=== PATIENT | female | born 2000 | race Caucasian/White ===

== ENCOUNTER 2020-11-27 22:08 | Inpatient (IN) | payer OTHER ==
[~2020-11-27] VITALS: Ht 160 cm; Wt 90.0 kg
[2020-11-27] MEDS ORDERED: ALBU6.7H9 IH (22:24)
[2020-11-27] MEDS ORDERED: HYDR-501 PO (22:24)
[2020-11-27] MEDS ORDERED: LEVO50TA8 PO (22:24)
[2020-11-27] MEDS ORDERED: CLON0.5T PO (22:24)
[2020-11-27] MEDS ORDERED: TRAZ-182 PO (22:24)
--- NOTE | 2020-11-27 22:35 | NUR ---
Dr. Rios at bedside for MSE.
[2020-11-27] MEDS ORDERED: ONDANSETRON 4 MG/2 ML VIAL IV ONE ×2 (22:45→23:15)
[2020-11-27] MEDS ORDERED: IV NORMAL SALINE 1000 ML BAG IV ONE (22:45)
[2020-11-27] MEDS ORDERED: MORPHINE SULFATE 2 MG/1 ML DISP.SYRIN IV ONE (22:45)
[2020-11-27] MEDS ORDERED: MORPHINE SULFATE 4 MG/1 ML DISP.SYRIN ONE (22:48)
[2020-11-27 22:51] LABS: BASOPHILS # (AUTO) 0.1 K/uL (0.0-8.0); BASOPHILS % (AUTO) 0.6 % (0.0-2.0); EOSINOPHILS # (AUTO) 0.2 K/uL (0.0-0.7); EOSINOPHILS % (AUTO) 2.4 % (0.0-7.0); HEMATOCRIT 42.9 % (31.2-41.9); HEMOGLOBIN 14.9 g/dL (10.9-14.3); LYMPHOCYTES # (AUTO) 2.3 K/uL (20.0-40.0); LYMPHOCYTES % (AUTO) 22.8 % (20.5-51.5); MEAN CORPUSCULAR HEMOGLOBIN 31.2 uug (24.7-32.8); MEAN CORPUSCULAR HGB CONC 35 g/dL (32.3-35.6); MONOCYTES # (AUTO) 0.7 K/uL (2.0-10.0); NEUTROPHILS # (AUTO) 6.8 K/uL (1.8-8.9); NEUTROPHILS % (AUTO) 67.2 % (38.5-71.5); PLATELET COUNT (AUTO) 316 K/uL (179-408); RED BLOOD CELL COUNT(AUTO) 4.77 MIL/uL (3.63-4.92); WHITE BLOOD COUNT (AUTO) 10.2 K/uL (3.8-11.8)
[2020-11-27 23:00] LABS: *BILIRUBIN,URIN NEGATIVE (NEGATIVE); *CLARITY,URINE CLEAR (CLEAR); *COLOR,URINE YELLOW (YELLOW); *KETONES,URINE NEGATIVE (NEGATIVE); *UROBILINOGEN,URINE 0.2 E.U./dl (NORMAL); LEUKOCYTE ESTERASE ,URINE TRACE (NEGATIVE); NITRITE, URINE NEGATIVE (NEGATIVE); PH,URINE 6.5 (5.0-8.0); UGLUCOSE NEGATIVE (NEGATIVE)
[2020-11-27 23:01] LABS: *URINE HCG, QUAL NEGATIVE (NEGATIVE)
[2020-11-27 23:02] LABS: *BLOOD, URINE NEGATIVE (NEGATIVE)
[2020-11-27 23:07] LABS: CARBON DIOXIDE 28 mmol/L (21-32); CHLORIDE 101 mmol/L (98-107); GLUCOSE 96 mg/dL (74-106); POTASSIUM 4.1 mmol/L (3.5-5.1); UREA NITROGEN, BLOOD 10 mg/dL (7-18)
--- NOTE | 2020-11-27 23:08 | NUR ---
Ultrasound at bedside.
[2020-11-27 23:10] LABS: RBC,URINE 0-3 /HPF (0-3)
[2020-11-27 23:11] LABS: BACTERIA,URINE FEW /HPF (NONE SEEN); MUCUS,URINE FEW /LPF (0-FEW); SQUAMOUS EPITHELIAL CELL,UR MODERATE /HPF (NONE SEEN); URINE AMORPHOUS URATE FEW /HPF
[2020-11-27 23:13] LABS: ALANINE AMINOTRANSFERASE 113 U/L (14-59); ALKALINE PHOSPHATASE 55 U/L (50-136); ASPARTATE AMINOTRANSFERASE 86 U/L (15-37); BILIRUBIN,DIRECT 0.1 mg/dL (0.0-0.2); BILIRUBIN,TOTAL 0.3 mg/dL (0.2-1.0); LIPASE 153 U/L (73-393); TOTAL PROTEIN, SERUM 8.1 g/dL (6.4-8.2)
[2020-11-27] MEDS ORDERED: HYDROMORPHONE 1 MG/1 ML DISP.SYRIN IV ONE (23:15)
[2020-11-27] MEDS ORDERED: ONDANSETRON 4 MG/2 ML VIAL ONE (23:19)
[2020-11-27] MEDS ORDERED: HYDROMORPHONE 1 MG/1 ML DISP.SYRIN ONE (23:20)
[2020-11-28] MEDS ORDERED: METOCLOPRAMIDE HCL 10 MG/2 ML VIAL IV ONE
[2020-11-28] MEDS ORDERED: diphenhydrAMINE 50 MG/1 ML VIAL IV ONE
[2020-11-28] MEDS ORDERED: CIPROFLOXACIN IV 400 MG in PREMIXED 1 EACH IV ONE
[2020-11-28] MEDS ORDERED: METRONIDAZOLE 500 MG/NS 100 ML PIGGYBACK IV ONE
--- NOTE | 2020-11-28 00:25 | NUR ---
Called [facility] to page Yosvany Valle NP.
--- NOTE | 2020-11-28 00:45 | NUR ---
Dr. Rios on panel call with Yosvany Valle NP. Patient accepted for admission to OR, diagnosis: cholelithiasis.
--- NOTE | 2020-11-28 00:47 | NUR ---
Dr. Rios speaking with Dr. Franki Brewer for surgery.
[2020-11-28] MEDS ORDERED: Z GUARD REMEDY PASTE 57 GM TUBE TOP PRN (01:00)
[2020-11-28] MEDS ORDERED: MORPHINE SULFATE 2 MG/1 ML DISP.SYRIN IV PRN (01:00)
--- NOTE | 2020-11-28 01:12 | NUR ---
Report given to Dayna AVELAR Medsurg.
--- NOTE | 2020-11-28 01:30 | NUR ---
Admitted a 20 y/o female to [facility] via gurney with admitting diagnosis of Acute cholecystitis. Pt on room air, no s/s of respiratory distress. Denies pain, nausea and vomiting. IV access on R AC intact and patent. Currently on NPO status. Pt is aware. Safety measures initiated, admission care rendered. Call light within reach. will continue to monitor.
[2020-11-28 01:53] VITALS: BP 134/76
[2020-11-28] MEDS: IV NS 1000 ML 1,000 ML IV PRN ×2 (02:16→16:46)
[2020-11-28 04:30] VITALS: BP 95/49
[2020-11-28] MEDS ORDERED: METRONIDAZOLE 500 MG/NS 100ML 100 ML IV ONE (05:22)
[2020-11-28] MEDS: METRONIDAZOLE 500 MG/NS 100ML 500 MG in PREMIXED 1 EACH IV SCH ×3 (05:30→21:34)
--- NOTE | 2020-11-28 06:03 | NUR ---
Pt in bed, awake and verbally responsive. Pt on room air, no s/s of respiratory distress. Denies pain, nausea and vomiting. IV access on R AC intact and patent. Safety measures initiated, call light within reach. Reminded pt regarding NPO status. Pt verbalized understanding. All needs attended.
[2020-11-28] MEDS: PANTOPRAZOLE SODIUM 40 MG VIAL IV SCH (08:17)
[2020-11-28] MEDS: ONDANSETRON 4 MG/2 ML VIAL IV PRN ×3 (08:48→21:31)
[2020-11-28] MEDS ORDERED: CIPROFLOXACIN IV 400 MG in PREMIXED 1 EACH IV SCH (09:00)
[2020-11-28 11:30] VITALS: BP 107/54
[2020-11-28] MEDS ORDERED: CLONAZEPAM 0.5 MG TABLET PO PRN (11:45)
[2020-11-28] MEDS: ALBUTEROL SULFATE 1.25 MG/3 ML NEBU NEB SCH ×3 (12:00→23:45)
[2020-11-28] MEDS: CIPROFLOXACIN IV 400 MG in PREMIXED 1 EACH IV SCH (12:14)
[2020-11-28 15:58] VITALS: BP 104/71
[2020-11-28] MEDS: MORPHINE SULFATE 4 MG/1 ML DISP.SYRIN IV PRN (17:08)
[2020-11-28 20:12] VITALS: BP 106/60
[2020-11-28] MEDS: TRAZODONE 50 MG TABLET PO SCH ×2 (21:31→21:40)
[2020-11-29] MEDS: CIPROFLOXACIN IV 400 MG in PREMIXED 1 EACH IV SCH ×2 (00:50→12:14)
[2020-11-29 04:38] VITALS: BP 106/67
[2020-11-29] MEDS: IV NS 1000 ML 1,000 ML IV PRN ×2 (04:46→18:26)
[2020-11-29] MEDS ORDERED: CEphaleXIN 250 MG CAPSULE ONE (05:09)
[2020-11-29] MEDS: ALBUTEROL SULFATE 1.25 MG/3 ML NEBU NEB SCH ×4 (05:25→23:52)
[2020-11-29] MEDS: METRONIDAZOLE 500 MG/NS 100ML 500 MG in PREMIXED 1 EACH IV SCH ×3 (06:02→21:44)
[2020-11-29] MEDS: MORPHINE SULFATE 4 MG/1 ML DISP.SYRIN IV PRN ×3 (06:14→19:42)
[2020-11-29] MEDS: ONDANSETRON 4 MG/2 ML VIAL IV PRN ×3 (06:14→18:24)
[2020-11-29 06:57] LABS: BASOPHILS % (AUTO) 0.2 % (0.0-2.0); EOSINOPHILS # (AUTO) 0.1 K/uL (0.0-0.7); HEMATOCRIT 38.2 % (31.2-41.9); HEMOGLOBIN 13.3 g/dL (10.9-14.3); LYMPHOCYTES # (AUTO) 1.7 K/uL (20.0-40.0); LYMPHOCYTES % (AUTO) 26.8 % (20.5-51.5); MEAN CORPUSCULAR HEMOGLOBIN 31.3 uug (24.7-32.8); MEAN CORPUSCULAR HGB CONC 35 g/dL (32.3-35.6); MEAN CORPUSCULAR VOLUME 89.7 fL (75.5-95.3); MONOCYTES # (AUTO) 0.5 K/uL (2.0-10.0); MONOCYTES % (AUTO) 7.5 % (0.0-11.0); NEUTROPHILS # (AUTO) 4.1 K/uL (1.8-8.9); NEUTROPHILS % (AUTO) 63.5 % (38.5-71.5); PLATELET COUNT (AUTO) 285 K/uL (179-408); RED BLOOD CELL COUNT(AUTO) 4.26 MIL/uL (3.63-4.92); WHITE BLOOD COUNT (AUTO) 6.5 K/uL (3.8-11.8)
--- NOTE | 2020-11-29 07:04 | NUR ---
End of Shift Report: Patient slept most of the night. AOx4, patient is on room air, no s/s of respiratory distress. IV access on R AC intact and patent running NS 100mL/hr. Safety measures initiated, call light within reach. Reminded patient regarding NPO status. Patient verbalized understanding. All needs attended to promptly. Will endorse to the oncoming shift.
[2020-11-29 07:06] LABS: BILIRUBIN,DIRECT 0.2 mg/dL (0.0-0.2); BILIRUBIN,TOTAL 0.8 mg/dL (0.2-1.0); CREATININE 0.9 mg/dL (0.6-1.3); PHOSPHOROUS 4.2 mg/dL (2.5-4.9); POTASSIUM 3.9 mmol/L (3.5-5.1); TOTAL PROTEIN, SERUM 6.9 g/dL (6.4-8.2)
[2020-11-29 07:21] LABS: BILIRUBIN,DIRECT 0.2 mg/dL (0.0-0.2); BILIRUBIN,TOTAL 0.8 mg/dL (0.2-1.0)
[2020-11-29] MEDS: LEVOTHYROXINE SODIUM 50 MCG TABLET PO SCH (07:39)
[2020-11-29] MEDS: PANTOPRAZOLE SODIUM 40 MG VIAL IV SCH (08:12)
[2020-11-29] MEDS ORDERED: LEVOTHYROXINE SODIUM 50 MCG TABLET PO SCH (09:00)
[2020-11-29 11:25] VITALS: BP 107/58
--- NOTE | 2020-11-29 12:23 | NUR ---
pt went to [facility] for [facility] via ambulances in stable condition
--- NOTE | 2020-11-29 14:06 | NUR ---
pt received back from the [facility] via ambulances in stable condition
[2020-11-29 15:58] VITALS: BP 108/55
--- NOTE | 2020-11-29 19:45 | NUR ---
RECEIVED PATIENT AWAKE IN BED. A/O X4. C/O PAIN IN ABDOMEN. GIVEN MORPHINE 4MG IV PER RN. VS WNL. IVF INFUSING WELL TO LEFT AC #22 GAUGE. PATIENT NPO ORDERED FOR SURGERY JOSE DE JESUS. CALL LIGHT IN REACH. ALL NEEDS ATTENDED. WILL CONTINUE TO MONITOR AND ASSESS.
[2020-11-29 20:28] VITALS: BP 102/57
[2020-11-30] MEDS: CIPROFLOXACIN IV 400 MG in PREMIXED 1 EACH IV SCH ×2 (01:28→12:11)
[2020-11-30 04:00] VITALS: BP 102/52
[2020-11-30] MEDS: IV NS 1000 ML 1,000 ML IV PRN ×2 (05:35→22:26)
[2020-11-30] MEDS: ALBUTEROL SULFATE 1.25 MG/3 ML NEBU NEB SCH ×4 (05:42→23:56)
[2020-11-30 06:16] LABS: BASOPHILS % (AUTO) 0.2 % (0.0-2.0); EOSINOPHILS # (AUTO) 0.2 K/uL (0.0-0.7); EOSINOPHILS % (AUTO) 2.4 % (0.0-7.0); HEMATOCRIT 38.4 % (31.2-41.9); HEMOGLOBIN 13.2 g/dL (10.9-14.3); LYMPHOCYTES # (AUTO) 1.6 K/uL (20.0-40.0); LYMPHOCYTES % (AUTO) 23.6 % (20.5-51.5); MEAN CORPUSCULAR HGB CONC 35 g/dL (32.3-35.6); MONOCYTES # (AUTO) 0.7 K/uL (2.0-10.0); MONOCYTES % (AUTO) 9.8 % (0.0-11.0); NEUTROPHILS # (AUTO) 4.4 K/uL (1.8-8.9); PLATELET COUNT (AUTO) 263 K/uL (179-408); RED BLOOD CELL COUNT(AUTO) 4.26 MIL/uL (3.63-4.92); WHITE BLOOD COUNT (AUTO) 6.8 K/uL (3.8-11.8)
[2020-11-30] MEDS: METRONIDAZOLE 500 MG/NS 100ML 500 MG in PREMIXED 1 EACH IV SCH ×3 (06:30→21:24)
[2020-11-30] MEDS: LEVOTHYROXINE SODIUM 50 MCG TABLET PO SCH ×2 (06:35→07:26)
[2020-11-30 06:36] LABS: BILIRUBIN,DIRECT 0.2 mg/dL (0.0-0.2); BILIRUBIN,TOTAL 0.9 mg/dL (0.2-1.0); CREATININE 0.9 mg/dL (0.6-1.3); MAGNESIUM 2.1 mg/dL (1.8-2.4); PHOSPHOROUS 5.3 mg/dL (2.5-4.9); POTASSIUM 4.5 mmol/L (3.5-5.1); TOTAL PROTEIN, SERUM 6.9 g/dL (6.4-8.2)
--- NOTE | 2020-11-30 06:37 | NUR ---
PATIENT ASLEEP IN BED, SLEPT WELL. VSS. CALL LIGHT IN REACH. KEPT NPO ORDERED. WILL CONTINUE TO MONITOR AND ASSESS.
[2020-11-30 06:40] LABS: BILIRUBIN,DIRECT 0.3 mg/dL (0.0-0.2); BILIRUBIN,TOTAL 0.9 mg/dL (0.2-1.0)
[2020-11-30] MEDS: PANTOPRAZOLE SODIUM 40 MG VIAL IV SCH (08:01)
[2020-11-30] MEDS: ONDANSETRON 4 MG/2 ML VIAL IV PRN (10:56)
[2020-11-30 11:29] VITALS: BP 112/65
[2020-11-30 15:07] VITALS: BP 112/65
[2020-11-30] MEDS ORDERED: LIDOCAINE HCL 1% 20 ML VIAL ONE (16:04)
[2020-11-30] MEDS ORDERED: BUPIVACAINE/EPI PF 0.25% 30 ML VIAL ONE (16:05)
[2020-11-30] MEDS ORDERED: FENTANYL CITRATE 100 MCG/2 ML AMPUL ONE ×2 (16:07→17:47)
[2020-11-30] MEDS ORDERED: MIDAZOLAM HCL 2 MG/2 ML VIAL ONE (16:08)
[2020-11-30] MEDS ORDERED: ROCURONIUM BROMIDE 50 MG/5 ML VIAL ONE (16:08)
[2020-11-30] MEDS ORDERED: SUCCINYLCHOLINE CHLORIDE 200 MG/10 ML VIAL ONE (16:08)
--- NOTE | 2020-11-30 16:10 | NUR ---
pt went to or via bed for surgery in stable condition
[2020-11-30] MEDS ORDERED: ONDANSETRON 4 MG/2 ML VIAL ONE (17:48)
[2020-11-30] MEDS ORDERED: HYDROMORPHONE 1 MG/1 ML DISP.SYRIN ONE (18:08)
--- NOTE | 2020-11-30 18:43 | NUR ---
pt received from recovery room via bed in stable condition.call light with in reach
[2020-11-30 18:52] VITALS: BP 118/68
[2020-11-30 20:54] VITALS: BP 114/71
[2020-11-30] MEDS: TRAZODONE 50 MG TABLET PO SCH (21:22)
[2020-11-30] MEDS: MORPHINE SULFATE 4 MG/1 ML DISP.SYRIN IV PRN (21:50)
[2020-12-01] MEDS: ONDANSETRON 4 MG/2 ML VIAL IV PRN (00:07)
[2020-12-01] MEDS: CIPROFLOXACIN IV 400 MG in PREMIXED 1 EACH IV SCH ×2 (01:56→12:35)
[2020-12-01 04:35] VITALS: BP 114/80
[2020-12-01] MEDS: MORPHINE SULFATE 4 MG/1 ML DISP.SYRIN IV PRN ×4 (05:33→22:30)
[2020-12-01] MEDS: METRONIDAZOLE 500 MG/NS 100ML 500 MG in PREMIXED 1 EACH IV SCH ×3 (05:36→22:24)
[2020-12-01] MEDS: LEVOTHYROXINE SODIUM 50 MCG TABLET PO SCH (06:31)
[2020-12-01 07:03] LABS: HEMATOCRIT 41.9 % (31.2-41.9); HEMOGLOBIN 14.4 g/dL (10.9-14.3); LYMPHOCYTES # (AUTO) 0.8 K/uL (20.0-40.0); LYMPHOCYTES % (AUTO) 4.5 % (20.5-51.5); MEAN CORPUSCULAR HEMOGLOBIN 30.7 uug (24.7-32.8); MEAN CORPUSCULAR HGB CONC 34 g/dL (32.3-35.6); MEAN CORPUSCULAR VOLUME 89.4 fL (75.5-95.3); MONOCYTES # (AUTO) 0.7 K/uL (2.0-10.0); MONOCYTES % (AUTO) 4.2 % (0.0-11.0); NEUTROPHILS # (AUTO) 15.4 K/uL (1.8-8.9); NEUTROPHILS % (AUTO) 91.3 % (38.5-71.5); PLATELET COUNT (AUTO) 332 K/uL (179-408); RED BLOOD CELL COUNT(AUTO) 4.69 MIL/uL (3.63-4.92); WHITE BLOOD COUNT (AUTO) 16.9 K/uL (3.8-11.8)
--- NOTE | 2020-12-01 07:33 | NUR ---
PATIENT ALERT ORIENTED, CONT PAIN MANAGEMENT, PATIENT AMBULATE TO TOILET FOR BLADDER ELIMINATION, PATIENT DID NOT PASS GAS YET, BUT BURPING ONLY. PATIENT USES INCENTIVE SPIROMETER TOLERATED. PATIENT COOPERATIVE WITH CARE. CONT TO MONITOR.
--- NOTE | 2020-12-01 07:34 | NUR ---
PATIENT ABDOMINAL PUNCTURE WOUND, DRESSING INTACT, NO DRAINAGE NOTED, CONT TO MONITOR.
[2020-12-01 07:35] LABS: BILIRUBIN,DIRECT 0.3 mg/dL (0.0-0.2); BILIRUBIN,TOTAL 0.9 mg/dL (0.2-1.0); CREATININE 0.8 mg/dL (0.6-1.3); PHOSPHOROUS 2.5 mg/dL (2.5-4.9); POTASSIUM 4.4 mmol/L (3.5-5.1); TOTAL PROTEIN, SERUM 7.9 g/dL (6.4-8.2)
[2020-12-01] MEDS: ALBUTEROL SULFATE 1.25 MG/3 ML NEBU NEB SCH ×5 (07:57→23:12)
[2020-12-01] MEDS: PANTOPRAZOLE SODIUM 40 MG TABLET.DR PO SCH (08:16)
[2020-12-01 11:04] LABS: BILIRUBIN,DIRECT 0.2 mg/dL (0.0-0.2); BILIRUBIN,TOTAL 0.8 mg/dL (0.2-1.0); TOTAL PROTEIN, SERUM 7.8 g/dL (6.4-8.2)
[2020-12-01 11:41] VITALS: BP 103/58
[2020-12-01] MEDS: HYDROCODONE/APAP 5-325MG TABLET PO PRN ×2 (13:07→19:57)
[2020-12-01] MEDS: IV NS 1000 ML 1,000 ML IV PRN (14:33)
[2020-12-01 14:34] LABS: LYMPHOCYTES % (MANUAL) 5 % (20-40); MONOCYTES % (MANUAL) 5 % (2-10); NEUTROPHILS % (MANUAL) 90 % (42-75)
[2020-12-01 16:01] VITALS: BP 101/51
--- NOTE | 2020-12-01 18:55 | NUR ---
pt administered with prn pain meds for comfort as ordered, able to ambulate with assistance, no flatulence noted during this shift
[2020-12-01 20:00] VITALS: BP 95/52
--- NOTE | 2020-12-01 20:00 | NUR ---
Received patient in bed crying c/o abdominal pain. PRN pain medication administered per orders. AAOX4. Pt on RA denies SOB. Abdominal incision steri strips clean and dry. Patient denies flatulence, states "I've only been able to burp". Encouraged and educated patient to ambulate and use incentive spirometer at bedside. Left FA IV patent and intact. Safety measures in place.
[2020-12-01] MEDS: TRAZODONE 50 MG TABLET PO SCH (21:13)
[2020-12-02] MEDS: CIPROFLOXACIN IV 400 MG in PREMIXED 1 EACH IV SCH ×2 (01:04→12:57)
[2020-12-02] MEDS: IV NS 1000 ML 1,000 ML IV PRN (01:04)
[2020-12-02 04:00] VITALS: BP 104/52
[2020-12-02] MEDS: METRONIDAZOLE 500 MG/NS 100ML 500 MG in PREMIXED 1 EACH IV SCH ×2 (05:20→14:21)
[2020-12-02] MEDS: HYDROCODONE/APAP 5-325MG TABLET PO PRN ×2 (05:20→12:22)
[2020-12-02] MEDS: ALBUTEROL SULFATE 1.25 MG/3 ML NEBU NEB SCH ×2 (06:00→12:00)
[2020-12-02] MEDS: LEVOTHYROXINE SODIUM 50 MCG TABLET PO SCH (06:07)
[2020-12-02 06:17] LABS: BASOPHILS % (AUTO) 0.2 % (0.0-2.0); EOSINOPHILS % (AUTO) 0.3 % (0.0-7.0); HEMATOCRIT 37.5 % (31.2-41.9); HEMOGLOBIN 12.6 g/dL (10.9-14.3); LYMPHOCYTES # (AUTO) 2.1 K/uL (20.0-40.0); LYMPHOCYTES % (AUTO) 22.5 % (20.5-51.5); MEAN CORPUSCULAR HEMOGLOBIN 30.9 uug (24.7-32.8); MEAN CORPUSCULAR HGB CONC 34 g/dL (32.3-35.6); MEAN CORPUSCULAR VOLUME 91.8 fL (75.5-95.3); MONOCYTES % (AUTO) 10.9 % (0.0-11.0); NEUTROPHILS # (AUTO) 6.2 K/uL (1.8-8.9); NEUTROPHILS % (AUTO) 66.1 % (38.5-71.5); PLATELET COUNT (AUTO) 249 K/uL (179-408); RED BLOOD CELL COUNT(AUTO) 4.08 MIL/uL (3.63-4.92); WHITE BLOOD COUNT (AUTO) 9.3 K/uL (3.8-11.8)
[2020-12-02 06:38] LABS: CREATININE 0.7 mg/dL (0.6-1.3); MAGNESIUM 2.1 mg/dL (1.8-2.4); PHOSPHOROUS 3.5 mg/dL (2.5-4.9); POTASSIUM 4.2 mmol/L (3.5-5.1)
[2020-12-02] MEDS: ONDANSETRON 4 MG/2 ML VIAL IV PRN (06:49)
--- NOTE | 2020-12-02 07:06 | NUR ---
Patient slept well. C/o nausea this morning, prn zofran administered per orders. Abdominal dressings clean, dry, and intact. All patient needs were met and attended to. Safety measures in place and will endorse to oncoming shift.
--- NOTE | 2020-12-02 07:30 | NUR ---
Received patient asleep in bed. On room air. no signs of acute distress. Left Forearm #22 with NS running at 100cc/hr. Will continue to monitor.
[2020-12-02 07:44] VITALS: BP 118/72
[2020-12-02] MEDS: PANTOPRAZOLE SODIUM 40 MG TABLET.DR PO SCH (08:28)
[2020-12-02] MEDS ORDERED: HYDR-3972 PO (08:52)
[2020-12-02] MEDS ORDERED: CIPR-262 PO (08:52)
[2020-12-02] MEDS ORDERED: METR500T PO (08:52)
[2020-12-02] MEDS ORDERED: KETOROLAC TROMETHAMINE 30 MG INJ IM ONE (15:29)
[2020-12-02] MEDS ORDERED: NEOSTIGMINE METHYLSULFATE 10 MG/10 ML VIAL IV ONE (15:29)
[2020-12-02] MEDS ORDERED: ONDANSETRON 4 MG/2 ML VIAL IV ONE (15:29)
[2020-12-02] MEDS ORDERED: GLYCOPYRROLATE 0.2 MG/ML VIAL MC ONE (15:29)
[2020-12-02] MEDS ORDERED: PROPOFOL 200 MG/20 ML BOTTLE IV ONE (15:29)
[2020-12-02] MEDS ORDERED: DEXAMETHASONE SOD PHOSPHATE 4 MG INJ IV ONE (15:29)
--- NOTE | 2020-12-02 15:45 | NUR ---
Discharged patient to home. Alert and oriented x 4. On room air. No signs of distress. Discharge instructions given and discharge documents signed. Medication prescription given to patient. Patient belongings accounted for and signed. Informed patient to follow up with Dr. Brewer in 1-2 weeks for follow-up appointment and patient verbalized understanding. IV access removed. ID band removed. Patient picked up by via private car.
== END 2020-12-02 15:30 | disposition home or self-care (01) | DRG 418 ==
LOC: ER 22:37 → MEDSURG3 11-28 01:17
PROVIDERS: ADMIT Registered Nurse; ATTEND Nurse Practitioner Acute Care
PROC: 0FT44ZZ Resection of Gallbladder, Percutaneous Endoscopic Approach (ICD-10-PCS; principal; 2020-11-30)
PROC: 0FB04ZX Excision of Liver, Percutaneous Endoscopic Approach, Diagnostic (ICD-10-PCS; 2020-11-30)
DX: K80.00 Calculus of gallbladder with acute cholecystitis without obstruction (principal); N39.0 Urinary tract infection, site not specified; E66.01 Morbid (severe) obesity due to excess calories; Z68.35 Body mass index [BMI] 35.0-35.9, adult; R74.01 Elevation of levels of liver transaminase levels; E03.9 Hypothyroidism, unspecified; F32.9 Major depressive disorder, single episode, unspecified; F41.9 Anxiety disorder, unspecified; Z88.0 Allergy status to penicillin; Z91.013 Allergy to seafood; B96.89 Other specified bacterial agents as the cause of diseases classified elsewhere; Z20.822 Contact with and (suspected) exposure to COVID-19
CPT/HCPCS: 36415; 70030-TC; 74181; 78445; 83690; 83735; 84100; 84703; 85025; 87086; 88313-TC; 94640; A4663; A9537; C9113; G0378; J0330; J0744; J1100; J1170; J1200; J1885; J2250; J2270; J2405; J2765; J3010; J3490; J7030; J7040